=== PATIENT | male | born 1965 | race Caucasian/White ===

== ENCOUNTER 2017-06-17 19:32 | Emergency (ER) | payer MEDICARE ==
[~2017-06-17] VITALS: Ht 175.3 cm; Wt 103.0 kg
[~2017-06-17 19:32] MED LIST: ADVIL PM1 TAB PO; ASPIRIN LOW DOS81 M1 PO; BUPROPION HCL200 M1 PO; CYCLOBENZAPR10 MG PO; CYMBALTA60 MG PO; FLUOXETINE20 MG PO; GABAPENTIN300 MG PO; LIPITOR10 M1 PO; LIPITOR20 M1 PO; LOPID600 MG PO; LORTAB 1010 MG PO; MELOXICAM15 MG PO; METFORMIN500 M1 PO; NEURONTIN800 MG PO; NORCO1 TA2 PO; OMEPRAZOLE20 M2 PO; PERCOCET1 TA2 PO; SIMVASTATIN20 MG PO; VOLTAREN1%GEL TOP
[2017-06-17 21:45] VITALS: BP 132/72
== END 2017-06-17 21:45 | disposition home or self-care (01) ==
LOC: ED 19:32
DX: T18.9XXA Foreign body of alimentary tract, part unspecified, initial encounter (principal); M54.30 Sciatica, unspecified side; F32.9 Major depressive disorder, single episode, unspecified; E11.9 Type 2 diabetes mellitus without complications; F17.210 Nicotine dependence, cigarettes, uncomplicated; X58.XXXA Exposure to other specified factors, initial encounter; Y93.89 Activity, other specified; Y92.009 Unspecified place in unspecified non-institutional (private) residence as the place of occurrence of the external cause

== ENCOUNTER → 2018-10-30 | Outpatient (REF) | payer MEDICARE ==
[~2018-10-30] MED LIST changes: +KEFLEX500 M1 PO; +LISINOPRIL20 MG PO; +MEDDOSEPAK PO; +PRAVASTATIN SOD20 MG PO
[2018-10-30 09:13] VITALS: BP 142/110
== END | disposition home or self-care (01) ==
LOC: PAIN/MGT 08:55
PROVIDERS: ATTEND Anesthesiology Pain Medicine
DX: Z09 Encounter for follow-up examination after completed treatment for conditions other than malignant neoplasm (principal)

== ENCOUNTER 2019-05-31 07:11 | Day surgery (SDC) | payer MEDICARE ==
[~2019-05-31] VITALS: Ht 175.3 cm; Wt 104.3 kg
[~2019-05-31 07:11] MED LIST changes: +CENTRUM SILVER PO
[2019-05-31 09:33] VITALS: BP 124/83
[2019-06-04] MEDS ORDERED: NORCO1 TA2 PO (10:18)
[2019-06-04] MEDS ORDERED: MEDDOSEPAK PO (10:19)
== END 2019-05-31 09:45 | disposition home or self-care (01) ==
LOC: ENDO 07:11 → ORM 10:15 → ENDO 10:15
PROVIDERS: ATTEND Internal Medicine Gastroenterology
PROC: 0D758ZZ Dilation of Esophagus, Via Natural or Artificial Opening Endoscopic (ICD-10-PCS; principal; 2019-05-31)
PROC: 0DB48ZX Excision of Esophagogastric Junction, Via Natural or Artificial Opening Endoscopic, Diagnostic (ICD-10-PCS; 2019-05-31)
PROC: 0DD48ZX Extraction of Esophagogastric Junction, Via Natural or Artificial Opening Endoscopic, Diagnostic (ICD-10-PCS; 2019-05-31)
DX: K22.70 Barrett's esophagus without dysplasia (principal); K44.9 Diaphragmatic hernia without obstruction or gangrene; K29.70 Gastritis, unspecified, without bleeding; K21.0 Gastro-esophageal reflux disease with esophagitis; F45.8 Other somatoform disorders; I10 Essential (primary) hypertension; E11.9 Type 2 diabetes mellitus without complications; I25.10 Atherosclerotic heart disease of native coronary artery without angina pectoris; I25.2 Old myocardial infarction; Z95.5 Presence of coronary angioplasty implant and graft

== ENCOUNTER 2019-06-02 10:58 | Emergency (ER) | payer MEDICARE ==
[~2019-06-02] VITALS: Ht 175.3 cm; Wt 104.0 kg
[2019-06-02] MEDS ORDERED: METFORMIN500 MG PO (11:21)
[2019-06-02] MEDS ORDERED: LOPID600 MG PO (11:41)
[2019-06-02] MEDS ORDERED: ASPIRIN 8181 MG PO (11:43)
[2019-06-02] MEDS ORDERED: PREDNISONE10 MG PO (11:53)
[2019-06-02 12:05] VITALS: BP 131/89
[2019-06-04] MEDS ORDERED: NORCO1 TA2 PO (10:18)
[2019-06-04] MEDS ORDERED: MEDDOSEPAK PO (10:19)
== END 2019-06-02 12:05 | disposition home or self-care (01) ==
LOC: ED 10:58
DX: M25.512 Pain in left shoulder (principal); F17.210 Nicotine dependence, cigarettes, uncomplicated; E11.9 Type 2 diabetes mellitus without complications; Z79.84 Long term (current) use of oral hypoglycemic drugs

== ENCOUNTER 2019-06-19 06:06 | Day surgery (SDC) | payer MEDICARE ==
[~2019-06-19 06:06] MED LIST changes: +ASPIRIN 8181 MG PO; +METFORMIN500 MG PO; +PREDNISONE10 MG PO
[2019-06-19 08:11] VITALS: BP 114/79
== END 2019-06-19 08:35 | disposition home or self-care (01) ==
LOC: ORM 06:06
PROVIDERS: ATTEND Anesthesiology Pain Medicine
DX: M65.812 Other synovitis and tenosynovitis, left shoulder (principal)

== ENCOUNTER 2019-07-03 05:56 | Day surgery (SDC) | payer MEDICARE ==
[~2019-07-03] VITALS: Ht 175.3 cm; Wt 104.3 kg
[2019-07-03] MEDS ORDERED: NORCO1 TA2 PO (06:50)
[2019-07-03 07:41] VITALS: BP 130/96
[2019-07-16] MEDS ORDERED: CYCLOBENZAPR10 MG PO (10:44)
[2019-07-16] MEDS ORDERED: NORCO1 TA2 PO ×2 (10:45→10:48)
[2019-09-10] MEDS ORDERED: PANTOPRAZOLE SO40 M1 PO (17:00)
[2019-09-10] MEDS ORDERED: NORCO1 TA2 PO (17:31)
== END 2019-07-03 07:56 | disposition home or self-care (01) ==
LOC: ORM 05:56
PROVIDERS: ATTEND Anesthesiology Pain Medicine
DX: M65.812 Other synovitis and tenosynovitis, left shoulder (principal)